=== PATIENT | female | born 1990 | race African-American/Black ===

== ENCOUNTER 2017-12-21 18:40 | Emergency (ER) | payer MEDICAID, OTHER ==
[~2017-12-21] VITALS: Ht 172.7 cm; Wt 59.0 kg
[2017-12-21 19:38] LABS: APPEARANCE,URINE CLEAR; BILIRUBIN, URINE NEGATIVE (NEGATIVE); COLOR,URINE PALE YELLOW; GLUCOSE, URINE (UA) NEGATIVE (NEGATIVE); KETONES,URINE NEGATIVE (NEGATIVE); LEUKOCYTE ESTERASE ,URINE 1+ (NEGATIVE); NITRITE,URINE NEGATIVE (NEGATIVE); PH,URINE 7 (4.5-8.0); PROTEIN,URINE NEGATIVE (NEGATIVE); UROBILINOGEN,URINE 1 MG/DL (0.0-1.0)
[2017-12-21 19:48] LABS: BASOPHILS % (AUTO) 0.8 % (0.0-2.0); EOSINOPHILS % (AUTO) 0.9 % (0.0-3.0); HEMOGLOBIN 12.3 G/DL (12.0-16.0); LYMPHOCYTES % (AUTO) 20.8 % (20.0-45.0); MEAN CORPUSCULAR VOLUME 90 FL (80-99); MONOCYTES % (AUTO) 6.2 % (1.0-10.0); NEUTROPHILS % (AUTO) 71.3 % (45.0-75.0); PLATELET COUNT 182 K/UL (150-450); RED BLOOD COUNT 4.12 M/UL (4.20-5.40); RED CELL DISTRIBUTION WIDTH 12.1 % (11.6-14.8); WHITE BLOOD COUNT 12.3 K/UL (4.8-10.8)
--- NOTE | 2017-12-21 22:01 | Emergency Room Report ---
History of Present Illness General Chief Complaint: Complications Source: Patient Present Illness HPI 27-year-old female who is presents to the emergency department complaining of 7/10 in severity lower abdominal cramping with vaginal bleeding x2 days. Patient reports moderate amount of bleeding yesterday and scant spotting today however continues to have cramping. 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 Patient states she had positive test at home. Patient does not know when her last menstrual cycle was because she states her last period was abnormally short in duration. She reports that her periods are typically 7 days duration however her last one was only 3 days of scant bleeding. She denies nausea or vomiting, dizziness. She reports prior history of anemia. Denies previously requiring RhoGAM. Denies fevers or chills Denies CP, Palpitations, LOC, AMS, dizziness, Changes in Vision, Sensation, paresthesias, or a sudden severe headache. Allergies: Coded Allergies: No Known Allergies (Unverified , 12/21/17) Patient History Past Medical History: see triage record Past Surgical History: none Pertinent Family History: none Last Menstrual Period: nov 13 Now: Yes : 4 Para: 3 Reviewed Nursing Documentation: PMH: Agreed, PSxH: Agreed Nursing Documentation-PMH Past Medical History: No Stated History Review of Systems All Other Systems: negative except mentioned in HPI Physical Exam Vital Signs Date Time Temp Pulse Resp B/P (MAP) Pulse Ox O2 Delivery O2 Flow Rate FiO2 12/21/17 18:43 99.1 86 18 103/68 97 Sp02 EP Interpretation: reviewed, normal General Appearance: no apparent distress, alert, GCS 15, non-toxic Head: normocephalic, atraumatic ENT: hearing grossly normal, normal voice Neck: full range of motion Respiratory: lungs clear, normal breath sounds, speaking full sentences Cardiovascular #1: regular rate, rhythm Gastrointestinal: non tender, soft Genitourinary: normal inspection, no CVA tenderness, other - Will do US. Musculoskeletal: back normal, gait/station normal, normal range of motion Neurologic: alert, oriented x3, responsive, motor strength/tone normal, sensory intact, speech normal, grossly normal Psychiatric: judgement/insight normal Skin: normal color, no rash, warm/dry, well hydrated Medical Decision Making PA Attestation Dr. Flaherty is my supervising Physician whom patient management has been discussed with. Diagnostic Impression: Primary Impression: Bleeding in early Additional Impressions: Threatened miscarriage Ovarian cyst during in first trimester ER Course 27-year-old female who is presents to the emergency department complaining of 7/10 in severity lower abdominal cramping with vaginal bleeding x2 days. Patient reports moderate amount of bleeding yesterday and scant spotting today however continues to have cramping. 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 Patient states she had positive test at home. Patient does not know when her last menstrual cycle was because she states her last period was abnormally short in duration. She reports that her periods are typically 7 days duration however her last one was only 3 days of scant bleeding. She denies nausea or vomiting, dizziness. She reports prior history of anemia. Denies previously requiring RhoGAM. Denies fevers or chills Denies CP, Palpitations, LOC, AMS, dizziness, Changes in Vision, Sensation, paresthesias, or a sudden severe headache. Ddx considered but are not limited to: Fibroid, ectopic , Fibroid, Spontaneous , Vital signs: are WNL, pt. is afebrile H&PE are most consistent with: spotting during early possible M/C. ORDERS: -CBC: WNL -Urine hcg- Positive -UA: unremarkable -serum Hcg Quant: 5895 - Blood/RH type and screen- see attached labs -- A POSITIVE-- -Pelvic US complete- intrauterine Gestational Sac noted, no HR. ED INTERVENTIONS: None at this time. D/w pt. results of Blood work and US which are too early to determine viable vs. miscarriage. there was no Free fluid, and there also was incidentally found a ovarian cyst. d/w pt. that she will need repeat blood work and US in 48 Hours and she should follow up with her OBGYN, Unless she experiences worsening of symptoms or new symptoms which would indicate prompt return to the ED. DISCHARGE: At this time pt. is stable for d/c to home. Will provide printed patient care instructions, and any necessary prescriptions. Care plan and follow up instructions have been discussed with the patient prior to discharge. Labs Test 12/21/17 18:50 12/21/17 19:32 Urine Color Pale yellow Urine Appearance Clear Urine pH 7 (4.5-8.0) Urine Specific [place] 1.015 (1.005-1.035) Urine Protein Negative (NEGATIVE) Urine Glucose (UA) Negative (NEGATIVE) Urine Ketones Negative (NEGATIVE) Urine Occult Blood 1+ (NEGATIVE) Urine Nitrite Negative (NEGATIVE) Urine Bilirubin Negative (NEGATIVE) Urine Urobilinogen 1 MG/DL (0.0-1.0) Urine Leukocyte Esterase 1+ (NEGATIVE) Urine RBC 0-2 /HPF (0 - 2) Urine WBC 0-2 /HPF (0 - 2) Urine Squamous Epithelial Cells Few /LPF (NONE/OCC) Urine Bacteria Few /HPF (NONE) Urine HCG, Qualitative Positive White Blood Count 12.3 K/UL (4.8-10.8) Red Blood Count 4.12 M/UL (4.20-5.40) Hemoglobin 12.3 G/DL (12.0-16.0) Hematocrit 37.0 % (37.0-47.0) Mean Corpuscular Volume 90 FL (80-99) Mean Corpuscular Hemoglobin 29.7 PG (27.0-31.0) Mean Corpuscular Hemoglobin Concent 33.1 G/DL (32.0-36.0) Red Cell Distribution Width 12.1 % (11.6-14.8) Platelet Count 182 K/UL (150-450) Mean Platelet Volume 5.8 FL (6.5-10.1) Neutrophils (%) (Auto) 71.3 % (45.0-75.0) Lymphocytes (%) (Auto) 20.8 % (20.0-45.0) Monocytes (%) (Auto) 6.2 % (1.0-10.0) Eosinophils (%) (Auto) 0.9 % (0.0-3.0) Basophils (%) (Auto) 0.8 % (0.0-2.0) Human Chorionic Gonadotropin, Quant 5895 mIU/mL (1-6) CT/MRI/US Diagnostic Results CT/MRI/US Diagnostic Results : Imaging Test Ordered: Pelvic OB US Impression " Small anechoic structure within the uterus noted possibly representing a gestational sac, with possible small yolk sac. No definite pole or heart rate seen at this time. Gestational sac too small for reliable dating by ultrasound. Findings may be related to early . Correlation with trended beta-HCG and short term interval repeat ultrasound recommended until diagnosis made. Simple ovarian cyst also noted. " - Per official radiology report- Please see report for specific details. Last Vital Signs Date Time Temp Pulse Resp B/P (MAP) Pulse Ox O2 Delivery O2 Flow Rate FiO2 12/21/17 18:43 99.1 86 18 103/68 97 Disposition: HOME, SELF-CARE Condition: Stable Physician Consult: Dr. Reagan Scripts Vit #91/Fe Fum/Fa/Dha ( + DHA COMBO PACK) 1 Each Combo..pkg 1 EACH PO DAILY, #1 PACK 3 Refills Prov: Jessica Burnett 12/21/17 Referrals: [facility],REFERRING (PCP) Patient Instructions: Threatened Miscarriage, [id number] Additional Instructions: Take medications as directed. Follow up with a OBGYN within 48 HOURS, even if your symptoms have resolved. Repeate HCg Quant Today was 5085 and US was too early to detect heart rate, only gestational sac, and ovarian cyst. Return sooner to ED if new symptoms occur, or current symptoms become worse. - Please note that this Emergency Department Report was dictated using Peer[employer] commander technology software, occasionally this can lead to erroneous entry secondary to interpretation by the dictation equipment. Jessica Burnett Dec 21, 2017 22:01
[2017-12-21] MEDS ORDERED: PRENATAL + DHA1 EAC1 PO (22:09)
[2017-12-21 22:16] VITALS: BP 103/68
--- NOTE | 2017-12-23 11:13 | Diagnostic Imaging Report ---
Indication: Pain during . Beta hCG 5085. Last menstrual period 11/13/2017. Technique: Grayscale and duplex Doppler imaging of the pelvis performed utilizing a transabdominal scan and endovaginal scan. Comparison: None Findings: The uterus measures 9.3 x 4.3 x 5.9 cm. Endometrium measures approximately 14 mm in thickness. Within the uterus there is a 8.5 mm well-circumscribed anechoic structure which may represent a gestational sac. A possible yolk sac is noted measuring 2 mm. No heart rate identified. Cervix is closed. The right ovary measures 4.2 x 2.8 x 2.8 cm/17 mL. The left ovary measures 6.1 x 1.8 x 2.9 cm/17 mL. A simple appearing cyst is noted within the left ovary measuring up to 2 cm. Color flow to the bilateral ovaries is noted. No free pelvic fluid seen. IMPRESSION: Small anechoic structure within the uterus noted possibly representing a gestational sac, with possible small yolk sac. No definite pole or heart rate seen at this time. Gestational sac too small for reliable dating by ultrasound. Findings may be related to early . Correlation with trended beta-HCG and short term interval repeat ultrasound recommended until diagnosis made. Simple appearing left ovarian cyst. No evidence to suggest ovarian torsion at this time. This corresponds with the preliminary report issued to the emergency department by the cath lab technologist.
== END 2017-12-21 22:18 | disposition home or self-care (01) ==
LOC: EMR 19:15
DX: O20.0 Threatened abortion (principal); O34.81 Maternal care for other abnormalities of pelvic organs, first trimester; N83.209 Unspecified ovarian cyst, unspecified side
CPT/HCPCS: 36415; 76801; 76856; 81003; 81025; 84702; 85025; 86900; 86901; 99284